=== PATIENT | female | born 1945 | race Caucasian/White ===

== ENCOUNTER 2017-01-24 11:14 | Emergency (ER) | payer OTHER ==
[~2017-01-24] VITALS: Ht 170.2 cm; Wt 58.6 kg
[2017-01-24 14:00] LABS: HEMATOCRIT 47.1 % (36.0-46.0); MCH 32.3 PG (29.0-34.0); MCHC 33.1 G/DL (30.0-36.0); MCV 97.5 FL (83-99); RBC DIS.WIDTH-CV 13.2 % (11.8-14.6); RED BLOOD COUNT 4.83 M/uL (3.80-5.20); WHITE BLOOD COUNT 11.4 K/uL (4.1-10.2)
[2017-01-24 14:09] LABS: CHLORIDE 104 mEq/L (99-109); POTASSIUM 3.9 mEq/L (3.7-5.4); SODIUM 139 mEq/L (136-147)
[2017-01-24 14:11] LABS: GLUCOSE 105 mg/dL (70-99)
[2017-01-24 14:12] LABS: ANION GAP 8 MEQ/L (2-14)
[2017-01-24 14:13] LABS: TOTAL BILIRUBIN 0.6 mg/dL (0.0-1.0)
[2017-01-24 14:14] LABS: ALKALINE PHOSPHATASE 76 IU/L (3-129)
[2017-01-24 14:15] LABS: GFR ESTIMATE (CALCULATED) > 59 mL/min/
[2017-01-24 14:16] LABS: UREA NITROGEN (BUN) 19 mg/dL (9-23)
[2017-01-24 14:18] LABS: LIPASE 44 U/L (1.0-51.0)
[2017-01-24 15:08] LABS: PLAT.SUFFICIENCY ADEQUATE; PLATELET CLUMPS PRESENT - PLATELET COUNT APPEARS ADQ.; PLATELET COUNT UNABLE TO REPORT K/uL (156-360)
[2017-01-24] MEDS ORDERED: NORCO 5/3251 TABLET PO (18:49)
[2017-01-24] MEDS ORDERED: ZOFRAN ODT8 MG PO (19:03)
[2017-01-24 19:26] VITALS: BP 129/67
== END 2017-01-24 19:27 | disposition home or self-care (01) ==
LOC: EME 11:14
PROVIDERS: Physician Assistant
DX: K86.9 Disease of pancreas, unspecified (principal); R10.10 Upper abdominal pain, unspecified; R42 Dizziness and giddiness; R11.0 Nausea; R68.81 Early satiety; R63.4 Abnormal weight loss; Z68.20 Body mass index [BMI] 20.0-20.9, adult; I70.0 Atherosclerosis of aorta; F17.200 Nicotine dependence, unspecified, uncomplicated
CPT/HCPCS: 71260; 74177; 76705; 80053; 82378; 83690; 85027; 86301 90; 99281; 99283; J7040

== ENCOUNTER 2017-01-31 22:37 | Inpatient (IN) | payer OTHER ==
[~2017-01-31] VITALS: Ht 167.6 cm; Wt 57.4 kg
[~2017-01-31 22:37] MED LIST: DULCOLAX5 MG PO; NORCO 5/3251 TABLET PO; PERCOCET 10/1 TABLET PO; REGLAN10 MG PO; ZANAFLEX4 M1 PO; ZOFRAN ODT8 MG PO
[2017-02-01 00:26] LABS: HEMATOCRIT 43.6 % (36.0-46.0); MCH 32.2 PG (29.0-34.0); MCHC 33.5 G/DL (30.0-36.0); MCV 96.2 FL (83-99); RBC DIS.WIDTH-SD 46.2 % (39-53); RED BLOOD COUNT 4.53 M/uL (3.80-5.20); WHITE BLOOD COUNT 11.7 K/uL (4.1-10.2)
[2017-02-01 00:35] LABS: CHLORIDE 99 mEq/L (99-109); POTASSIUM 4.2 mEq/L (3.7-5.4); SODIUM 137 mEq/L (136-147)
[2017-02-01 00:37] LABS: GLUCOSE 95 mg/dL (70-99)
[2017-02-01 00:39] LABS: ANION GAP 15 MEQ/L (2-14); TOTAL BILIRUBIN 0.6 mg/dL (0.0-1.0)
[2017-02-01 00:41] LABS: ALKALINE PHOSPHATASE 69 IU/L (3-129); GFR ESTIMATE (CALCULATED) > 59 mL/min/
[2017-02-01 00:42] LABS: UREA NITROGEN (BUN) 15 mg/dL (9-23)
[2017-02-01 00:45] LABS: LIPASE 30 U/L (1.0-51.0)
[2017-02-01 01:13] LABS: HEMATOLOGY COMMENT 1 SN; PLAT.SUFFICIENCY ADEQUATE; PLATELET COUNT UNABLE TO REPORT K/uL (156-360)
[2017-02-01 01:55] LABS: ADD MIUA? YES; BILIRUBIN NEGATIVE; BLOOD NEGATIVE; COLOR AMBER ((YELLOW)); GLUCOSE (STRIP) NEGATIVE; KETONES 20; LEUKOCYTES NEGATIVE; NITRITE NEGATIVE; PROTEIN (STRIP) 30; SPECIFIC GRAVITY 1.026 (1.000-1.030)
[2017-02-01 02:06] LABS: BACTERIA RARE /HPF; EPITHELIAL CELLS RARE /HPF; MUCUS 2+ /LPF; RED BLOOD CELLS 0-5 /HPF (0-5); UCUL ADDED? NO; WHITE BLOOD CELLS 0-5 /HPF (0-5)
[2017-02-01 05:27] VITALS: BP 157/74
[2017-02-01] MEDS ORDERED: OXYCODONE HCL10 MG PO (07:20)
[2017-02-01] MEDS ORDERED: AMITIZA24 MICROGR PO (07:22)
[2017-02-01 07:49] VITALS: BP 150/76
[2017-02-01 11:34] VITALS: BP 167/74
[2017-02-01 15:38] VITALS: BP 147/72
[2017-02-01 19:18] VITALS: BP 132/68
[2017-02-01 23:14] VITALS: BP 132/63
[2017-02-02] VITALS (8 sets, daily range): BP systolic 117–190; BP diastolic 56–85
[2017-02-02 07:32] LABS: EOSINOPHIL (%) 2.2 % (0-5); EOSINOPHIL COUNT 0.2 K/uL (0-0.3); HEMATOCRIT 37.1 % (36.0-46.0); IMMATURE GRANULOCYTE (%) 0.4 % (0.0-0.7); INSTRUMENT ABS NEUTROPHIL CT 5.3 K/uL; MCH 32.8 PG (29.0-34.0); MCHC 33.4 G/DL (30.0-36.0); MCV 98.1 FL (83-99); MEAN PLAT.VOLUME 9.8 uM^3 (9.5-12.4); MONOCYTE (%) 9.6 % (3-12); MONOCYTE COUNT 0.7 K/uL (0-0.8); NEUTROPHIL (%) 73.4 % (45-76); NEUTROPHIL COUNT 5.3 K/uL (1.8-6.4); PLATELET COUNT 260 K/uL (156-360); RBC DIS.WIDTH-CV 13.2 % (11.8-14.6); RBC DIS.WIDTH-SD 47.1 % (39-53); RED BLOOD COUNT 3.78 M/uL (3.80-5.20); WHITE BLOOD COUNT 7.2 K/uL (4.1-10.2)
[2017-02-02 07:48] LABS: ANION GAP 7 MEQ/L (2-14); CHLORIDE 108 MEQ/L (99-109); GFR ESTIMATE (CALCULATED) > 59 mL/min/; GLUCOSE 133 mg/dL (70-99); POTASSIUM 3.6 MEQ/L (3.7-5.4); SAMPLE HEMOLYSIS CHECK 0; SAMPLE ICTERIC CHECK 0; SAMPLE LIPEMIA CHECK 0; SODIUM 140 MEQ/L (136-147); UREA NITROGEN (BUN) 5 mg/dL (9-23)
[2017-02-02 07:57] LABS: INTER. NORMALIZED RATIO 1.1
[2017-02-02 07:59] LABS: PTT 28.8 SEC (25-37)
[2017-02-02 09:50] LABS: INTERNAL CONTROL VALID? YES
[2017-02-02 18:31] LABS: EOSINOPHIL (%) 0.5 % (0-5); HEMATOCRIT 39.5 % (36.0-46.0); IMMATURE GRANULOCYTE (%) 0.4 % (0.0-0.7); INSTRUMENT ABS NEUTROPHIL CT 5.9 K/uL; LYMPHOCYTE COUNT 1.1 K/uL (1.0-2.8); MCH 32.8 PG (29.0-34.0); MCHC 33.7 G/DL (30.0-36.0); MCV 97.5 FL (83-99); MEAN PLAT.VOLUME 9.5 uM^3 (9.5-12.4); MONOCYTE (%) 9.6 % (3-12); MONOCYTE COUNT 0.8 K/uL (0-0.8); NEUTROPHIL (%) 75.4 % (45-76); NEUTROPHIL COUNT 5.9 K/uL (1.8-6.4); PLATELET COUNT 289 K/uL (156-360); RBC DIS.WIDTH-CV 12.8 % (11.8-14.6); RBC DIS.WIDTH-SD 46.2 % (39-53); RED BLOOD COUNT 4.05 M/uL (3.80-5.20); WHITE BLOOD COUNT 7.9 K/uL (4.1-10.2)
[2017-02-02 18:53] LABS: ALKALINE PHOSPHATASE 50 IU/L (3-129); ANION GAP 6 MEQ/L (2-14); CHLORIDE 105 MEQ/L (99-109); GFR ESTIMATE (CALCULATED) > 59 mL/min/; GLUCOSE 123 mg/dL (70-99); POTASSIUM 4.8 MEQ/L (3.7-5.4); SAMPLE HEMOLYSIS CHECK 0; SAMPLE ICTERIC CHECK 0; SAMPLE LIPEMIA CHECK 0; SODIUM 138 MEQ/L (136-147); TOTAL BILIRUBIN 0.5 MG/DL (0.0-1.0); UREA NITROGEN (BUN) 3 mg/dL (9-23)
[2017-02-02 19:02] LABS: POINT-OF-CARE METER ID UU14117124
[2017-02-02 19:17] LABS: TROP-I INTERPRETATION NEGATIVE; TROPONIN-I 0.02 ng/mL (0.0-0.30)
[2017-02-03 05:10] LABS: SODIUM 137 mEq/L (136-147)
[2017-02-03 05:11] LABS: GLUCOSE 111 mg/dL (70-99)
[2017-02-03 05:13] LABS: ANION GAP 7 MEQ/L (2-14)
[2017-02-03 05:15] LABS: GFR ESTIMATE (CALCULATED) > 59 mL/min/
[2017-02-03 05:16] LABS: UREA NITROGEN (BUN) 3 mg/dL (9-23)
[2017-02-03 05:19] LABS: CHLORIDE 109 mEq/L (99-109); POTASSIUM 3.6 mEq/L (3.7-5.4)
[2017-02-03 08:12] VITALS: BP 148/75
[2017-02-03 11:55] VITALS: BP 140/72
[2017-02-03 16:41] VITALS: BP 138/73
[2017-02-03 23:22] VITALS: BP 110/70
[2017-02-04 04:27] VITALS: BP 138/75
[2017-02-04 07:46] LABS: ANION GAP 9 MEQ/L (2-14); CHLORIDE 109 MEQ/L (99-109); GFR ESTIMATE (CALCULATED) > 59 mL/min/; GLUCOSE 102 mg/dL (70-99); LIPASE 38 U/L (1.0-51.0); POTASSIUM 3.9 MEQ/L (3.7-5.4); SAMPLE HEMOLYSIS CHECK 1; SAMPLE ICTERIC CHECK 0; SAMPLE LIPEMIA CHECK 0; SODIUM 140 MEQ/L (136-147); UREA NITROGEN (BUN) 4 mg/dL (9-23)
[2017-02-04 08:08] VITALS: BP 144/71
[2017-02-04 12:13] VITALS: BP 135/72
[2017-02-04 15:43] VITALS: BP 173/83
[2017-02-04 20:13] VITALS: BP 137/81
[2017-02-05 00:03] VITALS: BP 120/67
[2017-02-05 04:06] VITALS: BP 128/70
[2017-02-05 08:28] VITALS: BP 153/85
[2017-02-05 11:42] VITALS: BP 151/70
[2017-02-05 15:30] VITALS: BP 169/84
[2017-02-05 20:30] VITALS: BP 136/66
[2017-02-06] VITALS (7 sets, daily range): BP systolic 120–144; BP diastolic 59–75
[2017-02-06 06:17] LABS: EOSINOPHIL (%) 2.5 % (0-5); EOSINOPHIL COUNT 0.2 K/uL (0-0.3); HEMATOCRIT 37.1 % (36.0-46.0); IMMATURE GRANULOCYTE (%) 0.3 % (0.0-0.7); INSTRUMENT ABS NEUTROPHIL CT 3.8 K/uL; LYMPHOCYTE COUNT 1.5 K/uL (1.0-2.8); MCH 32.1 PG (29.0-34.0); MCHC 33.7 G/DL (30.0-36.0); MCV 95.4 FL (83-99); MEAN PLAT.VOLUME 9.7 uM^3 (9.5-12.4); MONOCYTE COUNT 0.8 K/uL (0-0.8); NEUTROPHIL (%) 60.2 % (45-76); NEUTROPHIL COUNT 3.8 K/uL (1.8-6.4); PLATELET COUNT 280 K/uL (156-360); RBC DIS.WIDTH-CV 12.7 % (11.8-14.6); RBC DIS.WIDTH-SD 44.3 % (39-53); RED BLOOD COUNT 3.89 M/uL (3.80-5.20); WHITE BLOOD COUNT 6.3 K/uL (4.1-10.2)
[2017-02-06 06:58] LABS: ANION GAP 7 MEQ/L (2-14); CHLORIDE 107 MEQ/L (99-109); GFR ESTIMATE (CALCULATED) > 59 mL/min/; GLUCOSE 103 mg/dL (70-99); POTASSIUM 3.3 MEQ/L (3.7-5.4); SAMPLE HEMOLYSIS CHECK 0; SAMPLE ICTERIC CHECK 0; SAMPLE LIPEMIA CHECK 0; SODIUM 138 MEQ/L (136-147); UREA NITROGEN (BUN) 5 mg/dL (9-23)
[2017-02-06] MEDS ORDERED: OMEPRAZOLE40 M1 PO (17:23)
[2017-02-06] MEDS ORDERED: CARAFATE1 GM PO (17:23)
[2017-02-06] MEDS ORDERED: MOVANTIK25 MG PO (17:24)
[2017-02-07 00:11] VITALS: BP 124/61
[2017-02-07 04:37] VITALS: BP 121/60
[2017-02-07 07:30] LABS: EOSINOPHIL (%) 2.6 % (0-5); EOSINOPHIL COUNT 0.1 K/uL (0-0.3); IMMATURE GRANULOCYTE (%) 0.4 % (0.0-0.7); LYMPHOCYTE COUNT 1.3 K/uL (1.0-2.8); MCH 31.5 PG (29.0-34.0); MCHC 32.5 G/DL (30.0-36.0); MEAN PLAT.VOLUME 9.8 uM^3 (9.5-12.4); MONOCYTE (%) 11.1 % (3-12); MONOCYTE COUNT 0.6 K/uL (0-0.8); NEUTROPHIL (%) 59.6 % (45-76); PLATELET COUNT 279 K/uL (156-360); RBC DIS.WIDTH-SD 46.4 % (39-53); RED BLOOD COUNT 3.71 M/uL (3.80-5.20); WHITE BLOOD COUNT 5.1 K/uL (4.1-10.2)
[2017-02-07 07:45] VITALS: BP 130/64
[2017-02-07 07:52] LABS: ANION GAP 5 MEQ/L (2-14); CHLORIDE 109 MEQ/L (99-109); GFR ESTIMATE (CALCULATED) > 59 mL/min/; GLUCOSE 97 mg/dL (70-99); POTASSIUM 3.6 MEQ/L (3.7-5.4); SAMPLE HEMOLYSIS CHECK 0; SAMPLE ICTERIC CHECK 0; SAMPLE LIPEMIA CHECK 0; SODIUM 139 MEQ/L (136-147); UREA NITROGEN (BUN) 6 mg/dL (9-23)
[2017-02-07 07:59] LABS: ALKALINE PHOSPHATASE 39 IU/L (3-129); ANION GAP 8 MEQ/L (2-14); CHLORIDE 109 MEQ/L (99-109); GFR ESTIMATE (CALCULATED) > 59 mL/min/; GLUCOSE 98 mg/dL (70-99); POTASSIUM 3.6 MEQ/L (3.7-5.4); SAMPLE HEMOLYSIS CHECK 0; SAMPLE ICTERIC CHECK 0; SAMPLE LIPEMIA CHECK 0; SODIUM 140 MEQ/L (136-147); TOTAL BILIRUBIN 0.4 MG/DL (0.0-1.0); UREA NITROGEN (BUN) 6 mg/dL (9-23)
[2017-02-07 16:50] VITALS: BP 165/71
[2017-02-08] VITALS: BP 137/67
[2017-02-08 07:12] LABS: ALKALINE PHOSPHATASE 41 IU/L (3-129); ANION GAP 4 MEQ/L (2-14); CHLORIDE 107 MEQ/L (99-109); DIRECT BILIRUBIN 0.1 mg/dL (0.0-0.3); GFR ESTIMATE (CALCULATED) > 59 mL/min/; GLUCOSE 93 mg/dL (70-99); SAMPLE HEMOLYSIS CHECK 2; SAMPLE ICTERIC CHECK 0; SAMPLE LIPEMIA CHECK 0; SODIUM 138 MEQ/L (136-147); UREA NITROGEN (BUN) 7 mg/dL (9-23)
[2017-02-08 07:15] VITALS: BP 138/68
[2017-02-08 07:17] LABS: POTASSIUM 4.8 MEQ/L (3.7-5.4); TOTAL BILIRUBIN 0.5 MG/DL (0.0-1.0)
[2017-02-08 16:29] VITALS: BP 172/84
[2017-02-08 19:43] VITALS: BP 164/77
[2017-02-08 23:52] VITALS: BP 175/84
[2017-02-09 00:05] VITALS: BP 181/86
[2017-02-09 03:36] VITALS: BP 140/71
[2017-02-09 07:03] LABS: EOSINOPHIL (%) 0.9 % (0-5); EOSINOPHIL COUNT 0.1 K/uL (0-0.3); HEMATOCRIT 37.4 % (36.0-46.0); IMMATURE GRANULOCYTE (%) 0.1 % (0.0-0.7); INSTRUMENT ABS NEUTROPHIL CT 5.8 K/uL; MCH 32.8 PG (29.0-34.0); MCHC 34.2 G/DL (30.0-36.0); MCV 95.9 FL (83-99); MEAN PLAT.VOLUME 10.1 uM^3 (9.5-12.4); MONOCYTE (%) 9.4 % (3-12); MONOCYTE COUNT 0.7 K/uL (0-0.8); NEUTROPHIL (%) 75.9 % (45-76); NEUTROPHIL COUNT 5.8 K/uL (1.8-6.4); PLATELET COUNT 280 K/uL (156-360); RBC DIS.WIDTH-SD 45.3 % (39-53); WHITE BLOOD COUNT 7.6 K/uL (4.1-10.2)
[2017-02-09 07:28] LABS: ANION GAP 8 MEQ/L (2-14); CHLORIDE 103 MEQ/L (99-109); GFR ESTIMATE (CALCULATED) > 59 mL/min/; GLUCOSE 108 mg/dL (70-99); POTASSIUM 4.1 MEQ/L (3.7-5.4); SAMPLE HEMOLYSIS CHECK 0; SAMPLE ICTERIC CHECK 0; SAMPLE LIPEMIA CHECK 0; SODIUM 136 MEQ/L (136-147); UREA NITROGEN (BUN) 5 mg/dL (9-23)
[2017-02-09 08:37] VITALS: BP 157/76
[2017-02-09 12:30] VITALS: BP 163/75
[2017-02-09 15:46] VITALS: BP 177/84
[2017-02-09 19:19] VITALS: BP 176/83
[2017-02-10 00:12] VITALS: BP 139/75
[2017-02-10 04:00] VITALS: BP 168/84
[2017-02-10 08:20] VITALS: BP 145/72
[2017-02-10 11:40] VITALS: BP 162/76
[2017-02-10] MEDS ORDERED: MIRTAZAPINE15 MG PO (13:38)
[2017-02-10] MEDS ORDERED: PROMETHAZINE HC25 M1 PO (13:38)
[2017-02-10] MEDS ORDERED: DICYCLOMINE HCL10 MG PO (13:38)
== END 2017-02-10 15:46 | disposition home or self-care (01) | DRG 392 ==
LOC: EME 22:37 → 3EAST 02-01 03:45 → EDOF 02-01 03:45 → ENRESERV 02-01 03:46 → 3EAST 02-01 05:21
PROVIDERS: Family Medicine; Hospitalist; Internal Medicine; Physician Assistant; Specialist; Student in an Organized Health Care Education/Training Program
PROC: 0FB13ZX Excision of Right Lobe Liver, Percutaneous Approach, Diagnostic (ICD-10-PCS; principal; 2017-02-01)
PROC: B543ZZA Ultrasonography of Right Jugular Veins, Guidance (ICD-10-PCS; 2017-02-08)
PROC: 0JH60WZ Insertion of Totally Implantable Vascular Access Device into Chest Subcutaneous Tissue and Fascia, Open Approach (ICD-10-PCS; 2017-02-08)
PROC: 02HV33Z Insertion of Infusion Device into Superior Vena Cava, Percutaneous Approach (ICD-10-PCS; 2017-02-08)
DX: K59.03 Drug induced constipation (principal); T40.605A Adverse effect of unspecified narcotics, initial encounter; K56.7 Ileus, unspecified; G89.3 Neoplasm related pain (acute) (chronic); C77.2 Secondary and unspecified malignant neoplasm of intra-abdominal lymph nodes; C25.9 Malignant neoplasm of pancreas, unspecified; C78.7 Secondary malignant neoplasm of liver and intrahepatic bile duct; E87.6 Hypokalemia; I87.8 Other specified disorders of veins; J44.9 Chronic obstructive pulmonary disease, unspecified; F41.9 Anxiety disorder, unspecified; F17.210 Nicotine dependence, cigarettes, uncomplicated; Z79.891 Long term (current) use of opiate analgesic
CPT/HCPCS: 70450; 71010; 74000; 74020; 74177; 77012; 80048; 80053; 80076; 81003; 82948; 83605; 83690; 84484; 85025; 85025 91; 85027; 85610; 85730; 86140; 87338; 87506; 88305; 88341 TC; 88342 TC; 93005; 99281; 99285; C1752; C1894; C9113; J0360; J0690; J1170; J1644; J1885; J2060; J2250; J2270; J2405; J2765; J3010; J3480; J7030; J7042; S0020

== ENCOUNTER 2017-05-25 10:58 | Inpatient (IN) | payer OTHER ==
[~2017-05-25] VITALS: Ht 167.6 cm; Wt 50.0 kg
[~2017-05-25 10:58] MED LIST changes: +AMITIZA24 MICROGR PO; +CARAFATE1 GM PO; +DICYCLOMINE HCL10 MG PO; +ENULOSE10 GM/15 M PO; +K-DUR20 MEQ PO; +MIRALAX17 GM PO; +MIRTAZAPINE15 MG PO; +MOVANTIK25 MG PO; +OMEPRAZOLE40 M1 PO; +OXYCODONE HCL10 MG PO; +PREDNISONE2.5 MG PO; +PROMETHAZINE HC25 M1 PO; +SENNA-S TABLET1 EACH PO; +ZOLOFT25 MG PO
[2017-05-25 11:53] LABS: BASOPHIL (%) 0.2 % (0-1); EOSINOPHIL (%) 0.4 % (0-5); HEMATOCRIT 32.3 % (36.0-46.0); HEMOGLOBIN 10.7 G/DL (11.9-15.5); IMMATURE GRANULOCYTE (%) 1.2 % (0.0-0.7); LYMPHOCYTE (%) 5.1 % (15-42); LYMPHOCYTE COUNT 0.6 K/uL (1.0-2.8); MCH 33.9 PG (29.0-34.0); MCHC 33.1 G/DL (30.0-36.0); MCV 102.2 FL (83-99); MONOCYTE (%) 6.6 % (3-12); MONOCYTE COUNT 0.7 K/uL (0-0.8); NEUTROPHIL (%) 86.5 % (45-76); NEUTROPHIL COUNT 9.4 K/uL (1.8-6.4); PLATELET COUNT 303 K/uL (156-360); RBC DIS.WIDTH-CV 15.8 % (11.8-14.6); RED BLOOD COUNT 3.16 M/uL (3.80-5.20); WHITE BLOOD COUNT 10.9 K/uL (4.1-10.2)
[2017-05-25 12:03] LABS: PTT 33.6 SEC (25-37)
[2017-05-25 12:04] LABS: CHLORIDE 107 mEq/L (99-109); POTASSIUM 3.7 mEq/L (3.7-5.4); SODIUM 137 mEq/L (136-147)
[2017-05-25 12:05] LABS: GLUCOSE 105 mg/dL (70-99)
[2017-05-25 12:09] LABS: CREATININE 0.5 mg/dL (0.6-1.3); GFR ESTIMATE (CALCULATED) > 59 mL/min/
[2017-05-25 12:10] LABS: UREA NITROGEN (BUN) 10 mg/dL (9-23)
[2017-05-25 12:14] LABS: TROP-I INTERPRETATION INDETERMINATE; TROPONIN-I 0.37 ng/mL (0.0-0.30)
[2017-05-25 15:15] LABS: MAGNESIUM 1.4 mg/dL (1.3-2.7)
[2017-05-25 15:59] LABS: TROP-I INTERPRETATION INDETERMINATE; TROPONIN-I 0.32 ng/mL (0.0-0.30)
[2017-05-25 16:44] LABS: THYROTROPIN (TSH) 2.8 MIU/L (0.4-5.5)
[2017-05-25 20:22] VITALS: BP 107/63
[2017-05-26 00:07] VITALS: BP 116/69
[2017-05-26 01:07] LABS: TROP-I INTERPRETATION NEGATIVE; TROPONIN-I 0.14 ng/mL (0.0-0.30)
[2017-05-26 05:04] VITALS: BP 136/93
[2017-05-26 05:52] LABS: APPEARANCE SL.HAZY ((CLEAR)); BILIRUBIN NEGATIVE; BLOOD SMALL; COLOR YELLOW ((YELLOW)); GLUCOSE (STRIP) NEGATIVE; KETONES NEGATIVE; LEUKOCYTES NEGATIVE; NITRITE POSITIVE; PROTEIN (STRIP) NEGATIVE; SPECIFIC GRAVITY 1.012 (1.000-1.030); UROBILINOGEN 0.2 MG/DL (0.2-1.0)
[2017-05-26 06:14] LABS: HEMATOCRIT 30.6 % (36.0-46.0); HEMOGLOBIN 9.9 G/DL (11.9-15.5); MCH 33.8 PG (29.0-34.0); MCHC 32.4 G/DL (30.0-36.0); MCV 104.4 FL (83-99); PLATELET COUNT 298 K/uL (156-360); RBC DIS.WIDTH-SD 61.1 % (39-53); RED BLOOD COUNT 2.93 M/uL (3.80-5.20); WHITE BLOOD COUNT 9.2 K/uL (4.1-10.2)
[2017-05-26 06:15] LABS: BACTERIA RARE /HPF; EPITHELIAL CELLS RARE /HPF; MUCUS 1+ /LPF; RED BLOOD CELLS 0-5 /HPF (0-5); UCUL ADDED? YES
[2017-05-26 06:31] LABS: PTT 29.1 SEC (25-37); TROP-I INTERPRETATION NEGATIVE; TROPONIN-I 0.12 ng/mL (0.0-0.30)
[2017-05-26 06:35] LABS: CHLORIDE 106 MEQ/L (99-109); CREATININE 0.4 MG/DL (0.6-1.3); GFR ESTIMATE (CALCULATED) > 59 mL/min/; GLUCOSE 83 mg/dL (70-99); POTASSIUM 4.3 MEQ/L (3.7-5.4); SODIUM 138 MEQ/L (136-147); UREA NITROGEN (BUN) 8 mg/dL (9-23)
[2017-05-26 08:00] VITALS: BP 145/72
[2017-05-26 09:59] LABS: TROP-I INTERPRETATION NEGATIVE; TROPONIN-I 0.11 ng/mL (0.0-0.30)
[2017-05-26 11:58] VITALS: BP 100/55
[2017-05-26 16:00] VITALS: BP 100/66
[2017-05-26 16:27] LABS: TROP-I INTERPRETATION NEGATIVE; TROPONIN-I 0.09 ng/mL (0.0-0.30)
[2017-05-26 19:20] VITALS: BP 122/72
[2017-05-27 00:25] VITALS: BP 144/72
[2017-05-27 05:00] VITALS: BP 170/80
[2017-05-27 08:45] LABS: BASOPHIL (%) 0.3 % (0-1); EOSINOPHIL (%) 1.1 % (0-5); EOSINOPHIL COUNT 0.1 K/uL (0-0.3); HEMATOCRIT 28.8 % (36.0-46.0); HEMOGLOBIN 9.8 G/DL (11.9-15.5); IMMATURE GRANULOCYTE (%) 1.1 % (0.0-0.7); LYMPHOCYTE COUNT 0.5 K/uL (1.0-2.8); MCH 34.4 PG (29.0-34.0); MCV 101.1 FL (83-99); MONOCYTE (%) 8.2 % (3-12); MONOCYTE COUNT 0.6 K/uL (0-0.8); NEUTROPHIL (%) 82.3 % (45-76); NEUTROPHIL COUNT 6.2 K/uL (1.8-6.4); PLATELET COUNT 331 K/uL (156-360); RBC DIS.WIDTH-CV 15.7 % (11.8-14.6); RBC DIS.WIDTH-SD 57.7 % (39-53); RED BLOOD COUNT 2.85 M/uL (3.80-5.20); WHITE BLOOD COUNT 7.6 K/uL (4.1-10.2)
[2017-05-27 09:12] LABS: CHLORIDE 103 MEQ/L (99-109); CREATININE 0.3 MG/DL (0.6-1.3); GFR ESTIMATE (CALCULATED) > 59 mL/min/; GLUCOSE 86 mg/dL (70-99); SODIUM 138 MEQ/L (136-147); UREA NITROGEN (BUN) 5 mg/dL (9-23)
[2017-05-27 09:17] LABS: TROP-I INTERPRETATION NEGATIVE; TROPONIN-I 0.07 ng/mL (0.0-0.30)
[2017-05-27 09:32] LABS: POTASSIUM 3.1 MEQ/L (3.7-5.4)
[2017-05-27 09:53] VITALS: BP 144/79
[2017-05-27 11:09] LABS: HEMOGLOBIN A1c (GLYCOHEMOGLOB) 5.3 % (Below 5.7)
[2017-05-27 11:32] VITALS: BP 132/72
[2017-05-27 16:15] VITALS: BP 141/75
[2017-05-27 19:25] VITALS: BP 162/79
[2017-05-28 03:52] VITALS: BP 155/76
[2017-05-28 06:03] LABS: BASOPHIL (%) 0.5 % (0-1); EOSINOPHIL (%) 2.7 % (0-5); EOSINOPHIL COUNT 0.2 K/uL (0-0.3); HEMATOCRIT 27.7 % (36.0-46.0); HEMOGLOBIN 9.1 G/DL (11.9-15.5); IMMATURE GRANULOCYTE (%) 1.1 % (0.0-0.7); LYMPHOCYTE (%) 10.3 % (15-42); LYMPHOCYTE COUNT 0.7 K/uL (1.0-2.8); MCH 33.2 PG (29.0-34.0); MCHC 32.9 G/DL (30.0-36.0); MCV 101.1 FL (83-99); MONOCYTE COUNT 0.6 K/uL (0-0.8); NEUTROPHIL (%) 75.4 % (45-76); NEUTROPHIL COUNT 4.8 K/uL (1.8-6.4); PLATELET COUNT 358 K/uL (156-360); RBC DIS.WIDTH-CV 15.3 % (11.8-14.6); RBC DIS.WIDTH-SD 57.4 % (39-53); RED BLOOD COUNT 2.74 M/uL (3.80-5.20); WHITE BLOOD COUNT 6.3 K/uL (4.1-10.2)
[2017-05-28 06:32] LABS: CHLORIDE 104 MEQ/L (99-109); CREATININE 0.3 MG/DL (0.6-1.3); GFR ESTIMATE (CALCULATED) > 59 mL/min/; GLUCOSE 71 mg/dL (70-99); SODIUM 136 MEQ/L (136-147); UREA NITROGEN (BUN) 4 mg/dL (9-23)
[2017-05-28 06:36] LABS: POTASSIUM 3.7 MEQ/L (3.7-5.4)
[2017-05-28 09:00] VITALS: BP 170/81
[2017-05-28 12:00] VITALS: BP 165/82
[2017-05-28 16:00] VITALS: BP 147/90
[2017-05-29 02:56] VITALS: BP 161/85
[2017-05-29 09:58] VITALS: BP 147/88
[2017-05-29 12:16] VITALS: BP 137/83
[2017-05-29 18:23] VITALS: BP 139/83
[2017-05-29 19:15] VITALS: BP 134/82
[2017-05-29 22:41] VITALS: BP 118/75
[2017-05-30 03:05] VITALS: BP 122/65
[2017-05-30 08:17] VITALS: BP 133/79
[2017-05-30 11:00] VITALS: BP 146/78
[2017-05-30 15:40] VITALS: BP 141/81
[2017-05-30 21:00] VITALS: BP 126/75
[2017-05-31] VITALS (7 sets, daily range): BP systolic 104–129; BP diastolic 62–75
[2017-05-31 05:15] LABS: HEMOGLOBIN 9.7 G/DL (11.9-15.5); MCH 33.3 PG (29.0-34.0); MCHC 33.4 G/DL (30.0-36.0); MCV 99.7 FL (83-99); PLATELET COUNT 378 K/uL (156-360); RBC DIS.WIDTH-CV 14.6 % (11.8-14.6); RBC DIS.WIDTH-SD 53.3 % (39-53); RED BLOOD COUNT 2.91 M/uL (3.80-5.20); WHITE BLOOD COUNT 6.7 K/uL (4.1-10.2)
[2017-05-31 05:29] LABS: CHLORIDE 100 MEQ/L (99-109); POTASSIUM 2.7 MEQ/L (3.7-5.4); SODIUM 135 MEQ/L (136-147)
[2017-05-31 05:34] LABS: CREATININE 0.3 MG/DL (0.6-1.3); GFR ESTIMATE (CALCULATED) > 59 mL/min/; GLUCOSE 82 mg/dL (70-99); UREA NITROGEN (BUN) 4 mg/dL (9-23)
[2017-05-31 11:36] LABS: MAGNESIUM 1.4 mg/dl (1.3-2.7)
[2017-06-01 04:10] VITALS: BP 112/57
[2017-06-01 09:06] VITALS: BP 104/59
[2017-06-01 09:20] LABS: CHLORIDE 104 MEQ/L (99-109); CREATININE 0.3 MG/DL (0.6-1.3); GFR ESTIMATE (CALCULATED) > 59 mL/min/; GLUCOSE 81 mg/dL (70-99); POTASSIUM 3.3 MEQ/L (3.7-5.4); SODIUM 138 MEQ/L (136-147); UREA NITROGEN (BUN) 4 mg/dL (9-23)
[2017-06-01] MEDS ORDERED: PROMETHAZINE HC25 M1 PO (09:43)
[2017-06-01] MEDS ORDERED: LINZESS290 MCG PO (09:48)
[2017-06-01] MEDS ORDERED: MORPHINE CON20 MG/M1 PO (09:50)
[2017-06-01] MEDS ORDERED: ATIVAN0.5 MG PO (09:52)
[2017-06-01] MEDS ORDERED: ANASPAZ0.125 MG PO (09:53)
[2017-06-01] MEDS ORDERED: DOCUSATE SODIU100 MG PO (10:26)
[2017-06-01] MEDS ORDERED: FENTANYL1 EAC5 TD (11:27)
[2017-06-01 12:33] VITALS: BP 104/62
[2017-06-01 14:32] VITALS: BP 104/62
== END 2017-06-01 14:34 | disposition hospice, home (50) | DRG 199 ==
LOC: EME 10:58 → 4EAST 13:57 → EDOF 13:57 → ENRESERV 14:09 → CANRESERV 14:22 → ENRESERV 14:22 → 4EAST 19:59
PROVIDERS: Emergency Medicine; Hospitalist; Internal Medicine; Internal Medicine Cardiovascular Disease
DX: J95.811 Postprocedural pneumothorax (principal); J96.01 Acute respiratory failure with hypoxia; C25.9 Malignant neoplasm of pancreas, unspecified; C78.7 Secondary malignant neoplasm of liver and intrahepatic bile duct; E87.6 Hypokalemia; I27.20 Pulmonary hypertension, unspecified; J98.11 Atelectasis; K59.09 Other constipation; J44.9 Chronic obstructive pulmonary disease, unspecified; J90 Pleural effusion, not elsewhere classified; R62.7 Adult failure to thrive; N39.0 Urinary tract infection, site not specified; Z51.5 Encounter for palliative care; R53.1 Weakness; D64.9 Anemia, unspecified; R74.8 Abnormal levels of other serum enzymes; F17.200 Nicotine dependence, unspecified, uncomplicated; Z92.21 Personal history of antineoplastic chemotherapy; I24.8 Other forms of acute ischemic heart disease
CPT/HCPCS: 70450; 71045; 71046; 74018; 74176; 74270; 80048; 81003; 82140; 82607; 83036; 83735; 84100; 84132 91; 84443; 84484; 85025; 85027; 85610; 85730; 87040; 87077; 87086; 87186; 87502; 93005; 93306; 94640; 94640 76; 94760; 94799; 99202; 99281; 99285; J0696; J1650; J1885; J1940; J2270; J2405; J3480; J7030; J7050